=== PATIENT | female | born 1940 | race Caucasian/White ===

== ENCOUNTER → 2021-04-10 10:57 | Outpatient (CLI) | payer MEDICARE, OTHER, SELFPAY ==
[2021-04-10 12:36] LABS: Anion Gap 4 (5-15); BUN 7 mg/dL (7-18); BUN/Creat Ratio 13.5 RATIO (10-20); Chloride 107 mmol/L (98-107); Cholesterol 179 mg/dL (200); Creatinine, Serum 0.52 mg/dL (0.55-1.02); EST Glomerular Filtration Rate 121 mL/min (>60); Est Glom Filt Rate - Afr Amer 147 mL/min (>60); Glucose 95 mg/dL (74-106); High Density Lipoprotein 52 mg/dL; Potassium 3.6 mmol/L (3.5-5.1); Sodium Level 138 mmol/L (136-145); Thyroid Stim Hormone (TSH) 0.87 uIU/mL (0.358-3.74); Triglycerides 106 mg/dL; Very Low Density Lipoprotein 21 mg/dL (5-40)
[2021-04-10 13:18] LABS: Vitamin D,25 Hydroxy 72.7 ng/mL
== END ==
PROVIDERS: PCP Family Medicine; Referring Provider Family Medicine; Visit Provider Family Medicine
DX: Z00.00 Encounter for general adult medical examination without abnormal findings (principal); Z20.822 Contact with and (suspected) exposure to COVID-19; E55.9 Vitamin D deficiency, unspecified
CPT/HCPCS: 36415; 80048; 80061; 82306; 84443; 86769

== ENCOUNTER → 2021-04-28 07:51 | Outpatient (CLI) | payer MEDICARE, OTHER, SELFPAY ==
--- NOTE | 2021-04-28 07:55 | ECHOD_ITS ---
Reason For Study: EDEMA Procedure This was a 2D Doppler, Color Flow transthoracic echocardiogram. Exam performed in department. Left Ventricle Normal LV size. Left ventricular systolic function is normal. The estimated ejection fraction is 60 %. Stage 1 diastolic dysfunction. No regional wall motion abnormalities noted. Right Ventricle Normal RV size. Normal systolic function. Atria Normal left atrium. Normal right atrium. Mitral Valve Normal mitral valve. Mild (1+) eccentric mitral valve insufficiency. Tricuspid Valve Normal tricuspid valve. Mild (1+) tricuspid valve insufficiency. Pulmonary artery systolic pressure is 30 mmHg. Aortic Valve Normal aortic valve. Trisinus/trileaflet aortic valve. Mild (1+) eccentric aortic valve insufficiency. Pulmonic Valve Normal pulmonic valve. Great Vessels Normal aortic root. The pulmonary artery is normal size. Normal inferior vena cava. Pericardium/Pleural No pericardial effusion. MMode/2D Measurements & Calculations LVIDd: 3.8 cm IVSd: 1.1 cm Ao root diam: 3.4 cm LVIDs: 2.5 cm LVPWd: 0.99 cm RVDd: 2.4 cm FS: 34.5 % LAV(MOD-bp): 36.4 ml LVAd ap4: 24.5 cm2 LVAd ap2: 19.3 cm2 LAV(MOD-bp) Indexed: 23.7 ml/m2 LVLd ap4: 6.9 cm LVLd ap2: 6.6 cm LAV(MOD-sp2): 37.2 ml EDV(MOD-sp4): 72.5 ml EDV(MOD-sp2): 46.6 ml LAV(MOD-sp4): 30.7 ml EDV(sp4-el): 74.2 ml EDV(sp2-el): 47.9 ml LVAs ap4: 14.6 cm2 LVAs ap2: 11.5 cm2 LVLs ap4: 6.1 cm LVLs ap2: 6.2 cm ESV(MOD-sp4): 30.1 ml ESV(MOD-sp2): 19.5 ml ESV(sp4-el): 29.7 ml ESV(sp2-el): 18.1 ml EF(MOD-sp4): 58.4 % EF(MOD-sp2): 58.2 % EF(sp4-el): 60.0 % SV(MOD-sp4): 42.3 ml SV(MOD-sp2): 27.1 ml SV(sp4-el): 44.5 ml LA dimension(2D): 2.5 cm LA A4 area: 13.0 cm2 RA A4 area: 8.5 cm2 Time Measurements MV dec time: 0.26 sec Doppler Measurements & Calculations MV E max humble: 74.7 cm/sec Lat Peak E' Humble: 6.5 cm/sec Med Peak E' Humble: 4.1 cm/sec MV A max humble: 84.1 cm/sec E/E' lat: 11.5 E/E' med: 18.1 MV E/A: 0.89 Ao V2 max: 113.5 cm/sec AI max humble: 383.8 cm/sec LV V1 max: 95.2 cm/sec Ao max P.2 mmHg AI max P.1 mmHg LV V1 max P.6 mmHg AI dec slope: 227.8 cm/sec2 AI P1/2t: 493.3 msec PA V2 max: 71.0 cm/sec TR max humble: 258.7 cm/sec TR max P.8 mmHg ECHO/Echo Complete Interpretation Summary Normal LV size. Left ventricular systolic function is normal. The estimated ejection fraction is 60 %. Stage 1 diastolic dysfunction. Pulmonary artery systolic pressure is 30 mmHg. 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 Ordering Physician: Lukasz Fabian Referring Physician: Lukasz Fabian Performed By: Janene Ritchie, RDCS, RVT
== END ==
PROVIDERS: PCP Family Medicine; Referring Provider Family Medicine; Visit Provider Family Medicine
DX: R06.02 Shortness of breath (principal); R60.9 Edema, unspecified
CPT/HCPCS: 93306

== ENCOUNTER → 2023-01-18 | Outpatient (CLI) | payer MEDICARE, OTHER, SELFPAY ==
[2023-01-18 12:57] LABS: Anion Gap 6 (5-15); BUN 8 mg/dL (7-18); BUN/Creat Ratio 11.5 RATIO (10-20); Calcium,Total 8.9 mg/dL (8.5-10.1); Chloride 108 mmol/L (98-107); Cholesterol 225 mg/dL (200); EST Glomerular Filtration Rate 86 mL/min (>60); Est Glom Filt Rate - Afr Amer 104 mL/min (>60); Glucose 89 mg/dL (74-106); High Density Lipoprotein 74 mg/dL; Sodium Level 138 mmol/L (136-145); Triglycerides 81 mg/dL; Very Low Density Lipoprotein 16 mg/dL (5-40)
== END | disposition home or self-care (01) ==
LOC: MFPLAB 09:39
PROVIDERS: PCP Family Medicine; Visit Provider Family Medicine
DX: Z00.00 Encounter for general adult medical examination without abnormal findings (principal)
CPT/HCPCS: 36415; 80048; 80061